=== PATIENT | female | born 1985 | race Two or more races ===

== ENCOUNTER 2017-03-04 07:33 | Emergency (ER) | payer SELFPAY ==
[~2017-03-04] VITALS: Ht 157.5 cm; Wt 56.7 kg
[2017-03-04 07:33] VITALS: BP 112/68
[2017-03-04] MEDS ORDERED: FAMOTIDINE (20 MG) 20 MG TABLET PO ONE (08:00)
[2017-03-04] MEDS ORDERED: predniSONE 20 MG TABLET PO ONE (08:00)
[2017-03-04] MEDS ORDERED: FAMOTIDINE (20 MG) 20 MG TABLET ONE (08:00)
[2017-03-04] MEDS ORDERED: predniSONE 20 MG TABLET ONE (08:00)
[2017-03-04] MEDS ORDERED: predniSONE 10 MG TABLET ONE (08:00)
== END 2017-03-04 08:06 | disposition home or self-care (01) ==
LOC: ER 07:35
DX: L50.9 Urticaria, unspecified (principal)
CPT/HCPCS: 99283; A4606; J7512 ×2; Z7610